=== PATIENT | female | born 1975 | race Caucasian/White ===

== ENCOUNTER 2016-05-11 10:49 | Emergency (ER) | payer OTHER ==
[~2016-05-11] VITALS: Ht 154.9 cm; Wt 94.8 kg
[~2016-05-11 10:49] MED LIST: INDERAL LA80 M1; INDERAL10 MG PO; TAPAZOLE10 M1 PO; TAPAZOLE5 M1 PO
[2016-05-11 10:54] VITALS: BP 119/66
[2016-05-11] MEDS ORDERED: INDERAL20 MG PO (10:56)
[2016-05-11] MEDS ORDERED: TAPAZOLE10 MG PO (10:56)
--- NOTE | 2016-05-11 11:30 | NUR ---
Patient ambulated to bed 3. RN evaluating patient at bedside.
--- NOTE | 2016-05-11 11:35 | NUR ---
41F BIB SELF C/O RT ARM PAIN X LAST NIGHT; PT DENIES TRAUMA OR INJURY TO SITE AT THIS TIME; NO REDNESS, SWELLING, OR OBVIOUS DEFORMITIES NOTED TO SITE AT THIS TIME; RT CAP REFILL <3 SECONDS, RT RADIAL PULSE PALPABLE, NO LOSS OF SENSATION TO RT ARM NOTED AT THIS TIME; PT A&OX4, BL LUNG SOUNDS CLEAR, RR EVEN/UNLABORED, SKIN IS WARM/DRY/INTACT AT THIS TIME; PT DENIES N/V/D AT THIS TIME; STEADY GAIT; PT RESTINGING IN BED W/ HOB ELEVATED AND IN LOWEST POSITION; POSITIONED FOR COMFORT; ER MADE AWRAE OF STATUS. WILL CONTINUE TO MONITOR.
--- NOTE | 2016-05-11 11:50 | NUR ---
Dr. Dejesus evaluating patient at bedside.
[2016-05-11] MEDS ORDERED: METHOCARBAMOL 500 MG TAB PO ONE (11:55)
[2016-05-11] MEDS ORDERED: KETOROLAC 30 MG/ML VIAL IM ONE (11:55)
--- NOTE | 2016-05-11 12:25 | NUR ---
PT TAKEN TO XRAY VIA W/C ACCOMPANIED BY [facility].
[2016-05-11 13:38] VITALS: BP 108/54
--- NOTE | 2016-05-11 13:38 | NUR ---
Patient discharged with v/s stable. Written and verbal after care instructions given and explained. Patient alert, oriented and verbalized understanding of instructions. Ambulatory with . All questions addressed prior to discharge. ID band removed. Patient advised to follow up with PMD. Rx of NORCO 5MG-325MG & ROBAXIN 750MG TAB given. Patient educated on indication of medication including possible reaction and side effects. Opportunity to ask questions provided and answered.
== END 2016-05-11 13:38 | disposition home or self-care (01) ==
LOC: MED 10:49
DX: M25.511 Pain in right shoulder (principal); E05.90 Thyrotoxicosis, unspecified without thyrotoxic crisis or storm; Z90.89 Acquired absence of other organs; Z88.8 Allergy status to other drugs, medicaments and biological substances
CPT/HCPCS: 36415; 73030; 80053; 84484; 85025; 93005; 96372; 99285; J1885

== ENCOUNTER 2016-05-13 00:05 | Emergency (ER) | payer OTHER ==
[~2016-05-13] VITALS: Ht 154.9 cm; Wt 95.3 kg
[~2016-05-13 00:05] MED LIST changes: +IND20 PO; -INDERAL LA80 M1; -INDERAL10 MG PO; +METH-426 PO; -TAPAZOLE10 M1 PO; -TAPAZOLE5 M1 PO
[2016-05-13 00:19] VITALS: BP 116/77
--- NOTE | 2016-05-13 01:54 | NUR ---
Patient ambulated to bed 02.
--- NOTE | 2016-05-13 01:55 | NUR ---
41Y F BIB SELF c/o rt shoulder/clavicle pain. pt seen here on thursday for same thing, was norco and methacarbanol and pt states pain is still 10. pain is 8 when she takes the two meds given. MED HX: hyperthyroidism
--- NOTE | 2016-05-13 02:01 | NUR ---
Dr. Gonsalez evaluating patient at bedside.
[2016-05-13] MEDS ORDERED: KETOROLAC 60 MG/2 ML VIAL IM ONE (02:05)
[2016-05-13 02:34] VITALS: BP 114/72
--- NOTE | 2016-05-13 02:34 | NUR ---
Patient discharged with v/s stable. Written and verbal after care instructions given and explained. Patient alert, oriented and verbalized understanding of instructions. Ambulatory with steady gait. All questions addressed prior to discharge. ID band removed. Patient advised to follow up with PMD. Rx of TRAMADOL 50MG AND PERCOCET 5/325MG given. Patient educated on indication of medication including possible reaction and side effects. Opportunity to ask questions provided and answered.
== END 2016-05-13 02:34 | disposition home or self-care (01) ==
LOC: MED 00:05
DX: M25.511 Pain in right shoulder (principal); E05.90 Thyrotoxicosis, unspecified without thyrotoxic crisis or storm; Z88.8 Allergy status to other drugs, medicaments and biological substances
CPT/HCPCS: 96372; 99283; J1885